=== PATIENT | male | born 1980 | race Caucasian/White ===

== ENCOUNTER 2021-11-18 07:33 | Outpatient (REF) | payer OTHER, SELFPAY ==
[2021-11-18 08:34] LABS: COVID-19 Test Negative (Negative); IDNOW Serial# 16C4AD1C
== END 2021-11-18 07:34 | disposition home or self-care (01) ==
LOC: HO.LAB 07:33
PROVIDERS: Visit Provider Internal Medicine
DX: Z20.822 Contact with and (suspected) exposure to COVID-19 (principal)
CPT/HCPCS: 87635; C9803

== ENCOUNTER 2022-06-08 07:29 | Outpatient (REF) | payer OTHER, SELFPAY ==
[2022-06-08 09:17] LABS: COVID-19 Test Negative (Negative); IDNOW Serial# 16C4AD1C
== END 2022-06-08 07:30 | disposition home or self-care (01) ==
LOC: HO.LAB 07:29
PROVIDERS: Visit Provider Internal Medicine
DX: Z20.822 Contact with and (suspected) exposure to COVID-19 (principal)
CPT/HCPCS: 87635; C9803

== ENCOUNTER 2023-06-16 12:26 | Outpatient (AMB) | payer OTHER, SELFPAY ==
[2023-06-16 13:00] VITALS: BP 122/76; PULSE 88; TEMP 36.7; O2SAT 98; BMI 26.6
--- NOTE | 2023-06-16 13:00 | MHC.OFFWIV ---
Intake Vital Signs 06/16/23 13:00 Height 5 ft 7 in Weight 170 lb BMI 26.6 BP 122/76 Blood Pressure Location Rt brachial Position Sitting Pulse 88 Pulse Source Pulse Oximeter Temp 98.0 F Temp Source Temporal Artery Scan Pulse Oximetry (%) 98 Intake Visit Reasons: [employer] WC Removal Of stitches Intake Note: pt is here for stitches removal right hand Patient Tobacco Use Status: Never used Tobacco Allergies No Known Allergies Allergy (Verified 06/16/23 13:03) Do you need a note to return to daycare/school/sports/work: Yes HPI HPI Comments History of Present Illness Details This is a 43-year-old male presenting for suture removal. Patient had 5 sutures placed in his left hand overlying his 2nd MCP 10 days ago at [facility]. 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 The patient has no concerns regarding the laceration or sutures. [facility] Social History Patient Tobacco Use Status: Never used Tobacco Review of Systems Const All systems reviewed & are unremarkable except as noted in HPI and below Reports as per HPI Skin/Breast Details: 5 sutures left hand need removal Physical Exam Vital Signs: Last Vital Signs Temp 98.0 F 06/16/23 13:00 Pulse 88 06/16/23 13:00 BP 122/76 06/16/23 13:00 Pulse Ox 98 06/16/23 13:00 BMI result Body Mass Index 26.6 Const General: cooperative, healthy appearing, comfortable and no acute distress Nutritional Appearance: average body habitus Orientation/consciousness: patient oriented x3 Limitations: no limitations Skin Trauma: laceration left dorsal hand linear ( Five sutures intact in the laceration overlying the dorsal surface of the 2nd MCP left hand; no erythema, exudates or pain to examination) Neuro General: patient oriented x3 Extrem Left upper extremity: hand Details: normal to inspection, neuromotor exam normal, neurosensory exam normal and other (ROM all digits intact; left hand) Psych Appearance: grossly normal Mental Status: mental status grossly normal Insight: Good insight present (Psych) Judgement: Good judgement present (Psych) Assessment & Plan Assessment & Plan (1) Encounter for removal of sutures: Comment: all 5 sutures are easily removed and 2 Steri-Strips are placed over this lesion Code(s): Z48.02 - Encounter for removal of sutures Plan: Instructions to keep steri strips dry x 24 hours; no evidence of a secondary cellulitis. Coding Level of Care Code New Pt Level 3 (90904) Diagnoses Encounter for removal of sutures Z48.02 Time Spent (min) 20
== END 2023-06-16 14:06 | disposition home or self-care (01) ==
PROVIDERS: Visit Provider Physician Assistant
DX: Z48.02 Encounter for removal of sutures (principal)
CPT/HCPCS: 99203